=== PATIENT | male | born 1975 | race Two or more races ===

== ENCOUNTER 2020-01-26 09:37 | Outpatient (CLI) | payer MEDICAID ==
[~2020-01-26] VITALS: Ht 182.9 cm; Wt 66.7 kg
--- NOTE | 2020-01-26 21:45 | Consultation ---
DATE OF CONSULTATION: 01/26/2020 CONSULTING PHYSICIAN: Fred Willis MD. CHIEF COMPLAINT: Abdominal pain. HISTORY OF PRESENT ILLNESS: This is a 44-year-old male with constipation for many many years. He has been taking some quei-[id number] medication without any significant improvement. Also complained of diffuse bloating. Denies any weight loss. Denies any rectal bleeding. Denies any nausea, vomiting, dysphagia, or odynophagia. PAST MEDICAL HISTORY: 1. IBS. 2. Depression. 3. ADHD. PAST SURGICAL HISTORY: None. MEDICATIONS: See medication reconciliation list. FAMILY HISTORY: No family history of GI malignancies. SOCIAL HISTORY: Patient denies any tobacco, alcohol, or drug abuse. ALLERGIES: To sulfa. REVIEW OF SYSTEMS: Positive for abdominal pain, constipation, and bloating. PHYSICAL EXAMINATION: VITAL SIGNS: Temperature 98.2, blood pressure 95/65, pulse is 74, respirations 20. HEENT: Normocephalic, atraumatic. Sclerae anicteric. NECK: Supple. No evidence of obvious lymphadenopathy. CARDIOVASCULAR: Regular rate and rhythm. Plus S1 and S2. LUNGS: Decreased breath sounds bilaterally based on supine exam. ABDOMEN: Soft, nontender. No rebound. No guarding. No peritoneal sign. EXTREMITIES: No cyanosis. No clubbing. No edema. ASSESSMENT AND PLAN: This is a 44-year-old male with IBS and questionable SIBO. Plan, I will start the patient on probiotics, Align. Also order 3 mg p.o. daily. If the above combination does not work, patient might benefit from antibiotics course of about 10 to 14 days for SIBO. Patient to come back in 2 months for followup. Fred Willis M.D. DR: RAMON JOB#: [id number] CC:
[2020-02-09] MEDS ORDERED: FISH OIL CAP1000 MG ORAL (14:46)
== END 2020-01-26 11:37 | disposition home or self-care (01) ==
LOC: PAN 09:37
DX: R10.9 Unspecified abdominal pain (principal); R14.0 Abdominal distension (gaseous); K58.9 Irritable bowel syndrome, unspecified; Z88.2 Allergy status to sulfonamides
CPT/HCPCS: G0463